=== PATIENT | female | born 1955 | race Two or more races ===

== ENCOUNTER 2018-11-17 09:19 | Day surgery (SDC) | payer BC ==
[~2018-11-17] VITALS: Ht 152.4 cm; Wt 47.6 kg
[~2018-11-17 09:19] MED LIST: ANDROGEL1.25 GM TD; B COMPLETE1 EACH PO; ESTRADIOL0.5 MG PO; LEVOTHYROXINE100 MCG PO; MELOXICAM7.5 MG PO; OXYCODON-ACETA1 EAC2 PO; PREGNENOLONE5 GM MISC; PROGESTERONE100 MG PO
--- NOTE | 2018-11-17 11:14 | NUR ---
11/17/18 1114 Ronan,Felecia 1103 PT ARRIVED TO PACU ON 3L VIA NC, RESP EVEN AND UNLABORED. 1111 MD AT BEDSIDE AND PT WOKE TO TACTILE STIMULI. PT REORIENTED TO PACU AND NC REMOVED. PT DENIES PAIN AND IS ENCOURAGED TO PASS GAS. PT ROOLED TO BACK AND HOB INCREASED. PT BACK TO SLEEP.
--- NOTE | 2018-11-17 18:54 | OR ---
[facility] [address] [place], [place] [address] Signed DATE OF OPERATION: 11/17/2018 SURGEON: Harriet Valentine MD PREOPERATIVE DIAGNOSIS: Colon screening. POSTOPERATIVE DIAGNOSIS: Normal colon to cecum. PROCEDURE: Total colonoscopy to cecum (difficult). ANESTHESIA: Intravenous sedation, fentanyl 150 mcg, Versed 8 mg. INDICATION: This 62-year-old woman is a patient Dr. Sethi and well known to me from the past, having undergone thyroidectomy for benign disease as well as colonoscopy in 2008, which was normal. She has no family history of colon cancer nor symptoms currently of bleeding, diarrhea, or constipation. She is admitted at this time to undergo colonoscopy for screening. She understands the risks of bleeding, infection, and perforation. FINDINGS: The prep was excellent. Complete colonoscopy was undertaken to cecum. Passage of the splenic flexure and hepatic flexure was challenging, but was accomplished ultimately with complete success, visualizing well the cecum and the remaining colon. There were no findings of polyps, diverticular formation, colitis, or cancer. DESCRIPTION OF PROCEDURE: The patient was brought to the endoscopy suite and placed in lateral decubitus position, given intravenous sedation to the point of slurred speech and nystagmus. Digital rectal examination was normal. Olympus video colonoscope was passed in the rectum and manipulated throughout the colon. Passage in the region of the splenic flexure was challenging and the scope was withdrawn and ultimately reintroduced, and with time and persistence and gentle care, ultimately advanced to the cecum itself. The ileocecal valve and appendiceal orifice were normal. Scope was withdrawn from that point and examination throughout showed no Electronically Signed By: HARRIET VALENTINE MD 11/17/18 1854 PATIENT NAME: FRANCISCO FRANKLIN OPERATIVE REPORT DATE OF : 55 REPORT #: [id number] PHYSICIAN: HARRIET VALENTINE MD PCP: JOSE SETHI MD REPORT IS CONFIDENTIAL AND NOT TO BE RELEASED WITHOUT AUTHORIZATION [facility] [address] [place], [place] [address] Signed sign of polyps, diverticular formation, colitis, or cancer. There is no actual stricture, but there must be significant angulation deformity to account for the difficulty of passage of the scope to begin with. The scope was withdrawn ultimately to the rectum. A retroflexed view was undertaken, which was normal as well. Scope was removed and the patient was taken to recovery room in good condition. CONCLUDING DIAGNOSIS: Normal colon. PLAN: Recommend repeat colonoscopy in 10 years sooner if clinically indicated. MD BARBY Holguin/ИРИНАL /[id number] cc: Jose Sethi MD Copies: JOSE SETHI MD ~ Electronically Signed By: HARRIET VALENTINE MD 11/17/18 1854 PATIENT NAME: FRANCISCO FRANKLIN OPERATIVE REPORT DATE OF : 55 REPORT #: [id number] PHYSICIAN: HARRIET VALENTINE MD PCP: JOSE SETHI MD REPORT IS CONFIDENTIAL AND NOT TO BE RELEASED WITHOUT AUTHORIZATION
== END 2018-11-17 11:50 | disposition home or self-care (01) ==
LOC: OPS 09:19 → DS 11:00 → OPS 11:00
PROVIDERS: Surgery
PROC: 0DJD8ZZ Inspection of Lower Intestinal Tract, Via Natural or Artificial Opening Endoscopic (ICD-10-PCS; principal; 2018-11-17 10:00)
DX: Z12.11 Encounter for screening for malignant neoplasm of colon (principal); R63.4 Abnormal weight loss; E89.0 Postprocedural hypothyroidism; Z98.890 Other specified postprocedural states; Z88.5 Allergy status to narcotic agent; Z86.39 Personal history of other endocrine, nutritional and metabolic disease
CPT/HCPCS: 99153; G0500; J2250; J3010; J7120

== ENCOUNTER 2023-09-13 06:40 | Day surgery (SDC) | payer BC ==
[2023-09-07 09:25] VITALS: BP 165/82
[~2023-09-13] VITALS: Ht 152.4 cm; Wt 45.5 kg
[~2023-09-13 06:40] MED LIST changes: +GALANTAMINE HBR24 MG PO; +LACTATED RINGER'S 1,000 ML IV SCH; +MODAFINIL200 MG PO; +VITAMIN B12500 MCG PO; +VITAMIN D3125 MC1 PO
[2023-09-13] MEDS ORDERED: KETOROLAC TROMETHAMINE 30 MG/ML VIAL ONE (06:55)
[2023-09-13] MEDS ORDERED: ondansetron HCL 4 MG/2 ML VIAL ONE (06:55)
[2023-09-13] MEDS ORDERED: propofoL 200 MG/20 ML VIAL ONE ×2 (06:55→12:52)
[2023-09-13] MEDS ORDERED: DEXAMETHASONE SOD PHOS 4 MG/ML VIAL ONE (06:55)
[2023-09-13] MEDS ORDERED: FAMOTIDINE 20 MG/ 2 ML VIAL ONE (06:55)
[2023-09-13] MEDS ORDERED: fentaNYL citrate 100 MCG/2 ML VIAL ONE (06:55)
[2023-09-13] MEDS ORDERED: LACTATED RINGER'S 1,000 ML IV ONE (06:55)
[2023-09-13] MEDS ORDERED: MIDAZOLAM HCL 2 MG/2 ML VIAL ONE (06:55)
[2023-09-13] MEDS ORDERED: METOCLOPRAMIDE HCL 10 MG/2 ML SDV ONE (06:55)
[2023-09-13] MEDS ORDERED: CEFAZOLIN SODIUM 2 GM/20 ML SYR IV SCH (07:00)
[2023-09-13] MEDS ORDERED: HEParin SOD (PORCINE) 5,000 UNIT/0.5 ML SYR SUB-Q SCH (07:00)
[2023-09-13] MEDS ORDERED: LIDOCAINE HCL 1% 5 ML SDV INJ ONE (07:00)
[2023-09-13] MEDS ORDERED: IBLOOD GLUCOSE TEST STRIP 1 EA TEST VI PRN ×2 (07:00→09:00)
[2023-09-13 07:22] VITALS: BP 152/72
[2023-09-13] MEDS ORDERED: ARMOUR THYROID30 MG PO (07:32)
--- NOTE | 2023-09-13 07:49 | NUR ---
VISITED DURING SPIRITUAL CARE ROUNDS. PT RECEIVING NURSING CARE. DID NOT INTERRUPT. PROVIDED PRAYER.
--- NOTE | 2023-09-13 08:45 | NUR ---
PT BACK FROM [facility]. PROVIDED WARM BLANKETS AND LAYING IN BED W/CALL LIGHT IN REACH. PT REPORTS NO FURTHER NEEDS AT THIS TIME. PT FAMILY AT BEDSIDE.
[2023-09-13] MEDS ORDERED: ondansetron HCL 4 MG/2 ML VIAL IV PRN (09:00)
[2023-09-13] MEDS ORDERED: fentaNYL citrate 50 MCG/ML SDV IV PRN (09:00)
[2023-09-13] MEDS ORDERED: droPERidol 5 MG/2 ML VIAL IV PRN (09:00)
[2023-09-13] MEDS ORDERED: MEPERIDINE HCL 25 MG/1 ML VIAL IV PRN (09:00)
[2023-09-13] MEDS ORDERED: PROCHLORPERAZINE EDISYLATE 10 MG/2 ML VIAL IV PRN (09:00)
[2023-09-13] MEDS ORDERED: METOCLOPRAMIDE HCL 10 MG/2 ML SDV IV PRN (09:00)
[2023-09-13] MEDS ORDERED: NALOXONE HCL 0.4 MG SYR IV PRN ×2 (09:00→15:00)
--- NOTE | 2023-09-13 10:30 | NUR ---
PT PROVIDED ORAL SWABS D/T MOUTH DRYNESS. PT STATES THESE HELP AND NO FURTHER QUESTIONS OR NEEDS. PT UPDATED ON PREVIOUS CASE PROGRESS. FAMILY REMAINS AT BEDSIDE.
--- NOTE | 2023-09-13 11:15 | NUR ---
PT UPDATED THAT PREVIOUS CASE HAS ENDED AND MELINDA LARIOS WILL BE IN SHORTLY TO TALK TO PT AND FAMILY. PT REPORTS NO FURTHER NEEDS OR QUESTIONS AT THIS TIME.
[2023-09-13] MEDS ORDERED: Methylene Blue 100 MG/10 ML SDV ONE (11:58)
[2023-09-13] MEDS ORDERED: OXYCODON-ACETA1 EAC2 PO (14:57)
[2023-09-13] MEDS ORDERED: ACETAMINOPHEN500 MG PO (14:57)
[2023-09-13] MEDS ORDERED: IBUPROFEN600 MG PO (14:57)
[2023-09-13] MEDS ORDERED: ACETAMINOPHEN 500 MG TAB PO PRN (15:00)
[2023-09-13] MEDS ORDERED: IBUPROFEN 600 MG TAB PO PRN (15:00)
[2023-09-13] MEDS ORDERED: LACTATED RINGER'S 1,000 ML IV SCH (15:00)
[2023-09-13] MEDS ORDERED: OXYCODONE/APAP 7.5/325 TAB PO PRN (15:00)
--- NOTE | 2023-09-13 15:05 | NUR ---
09/13/23 Kirit Bone 1432-PT ARRIVED TO PACU WITH OPA IN PLACE, ON 10L/MASK, AND UNRESPONSIVE TO NOXIOUS STIMULI. SURGICAL DRSGS OBSERVED AND PT NOTED WITH 2 DRSGS. DRSG ACCROSS L BREAST WITH SS AND ACTICOAT, CDI. DRSG ALSO UNDER L AXILLA WITH SS AND ACTICOAT, CDI. ABD SOFT, NT TO PALPATION. 1439-PT REMAINS UNRESPONSIVE TO NOXIOUS STIMULI, OPA REMAINS IN PLACE. OXYGEN TITRATED DOWN TO 6L/MASK. SATS STABLE AT 95% OR HIGHER. 1448-PT APPEARS TO BE AROUSING AND MOVING ABOUT BLE'S. PT REACHING FOR OXYGEN MASK, OPA REMOVED AT THIS TIME. 1451-PT MORE AWAKE AND PT TITRATED TO RA. SATS HOLDING STABLE AT 95% OR GREATER. 1455-PT ATTEMPTING TO SIT UP IN BED. ASSISTED WITH ELEVATING HOB TO APPROX 40 DEGREE ANGLE FOR COMFORT. 1458-DR. VALENTINE AT BEDSIDE DISCUSSING CASE WITH PT.
--- NOTE | 2023-09-13 15:25 | NUR ---
PT ARRIVES TO DS UNIT FROM PACU VIA STRETCHER. PT STATES SHE "WOULDN'T MIND A LITTLE SOMETHING FOR THE PAIN" AND THAT SHE "CAN CERTAINLY FEEL THAT IT'S THERE". PT ADVISED TO CONSUME SMALL AMOUNT OF ORAL FOOD BEFORE STOCK PITCHER, PT STATES VERBAL UNDERSTANDING AT THIS TIME AND REQUESTS JELLO. RESPIRATIONS EVEN AND UNLABORED, NO SIGNS OF DISTRESS. PT TOLERATING ICE WATER SIPS WITHOUT DIFFICULTY. WARM BLANKET PROVIDED. REPORT RECEIVED FROM [facility] W/FAMILY AT BEDSIDE & FOR VISUALIZATION OF WOUND DRESSING. CALL LIGHT WITHIN REACH, PT REPORTS NO FURTHER NEEDS OR QUESTIONS AT THIS TIME.
[2023-09-13 15:26] VITALS: BP 153/74
--- NOTE | 2023-09-13 15:45 | NUR ---
PT TOLERATED JELLO WITHOUT DIFFICULTY OR ONSET OF NAUSEA, PO TYLENOL GIVEN (SEE EMAR). PT STATES SHE NEEDS TO URINE VOID AT THIS TIME. PT REPORTS NO DIZZINESS OR NAUSEA SITTING/STANDING AT BEDSIDE. THIS RN STANDBY ASSIST TO RESTROOM FOR PT URINE VOID OF 275 ML. PT BACK IN BED WITH WARM BLANKETS AT THIS TIME, CALL LIGHT WITHIN REACH. PRESCRIPTION PROVIDED TO FOR HAND DELIVERY TO PHARMACY.
[2023-09-13 16:20] VITALS: BP 141/72
--- NOTE | 2023-09-13 16:35 | NUR ---
IN PT ROOM FOR DISCHARGE EDCUATION D/T RETURN FROM PHARMACY. PT AND PT STATE VERBAL UNDERSTANDING TO DISCHARGE EDUCATION AND NO FURTHER QUESTIONS AT THIS TIME. THIS RN STANDBY ASSIST TO URINE VOID AT THIS TIME. PT OFF OF UNIT TO PASSENGER SIDE OF 'S VEHICLE. PT AND PT REPORT NO FURTHER QUESTIONS OR NEEDS AT THIS TIME. ALL BELONGINGS ARE IN PT POSSESSION.
--- NOTE | 2023-09-14 13:31 | OR ---
[facility] [address] [place], [place] [address] Signed DATE OF OPERATION: 09/13/2023 SURGEON: Harriet Valentine MD PREOPERATIVE DIAGNOSES: 1. 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 2. Small breast. POSTOPERATIVE DIAGNOSES: 1. 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 2. Small breast. PROCEDURES: 1. Injection of methylene blue for sentinel lymph node identification, left breast. 2. Left deep axillary sentinel lymph node biopsies x3. 3. Left partial mastectomy with oncoplastic closure (tissue transfer reconstruction). ANESTHESIA: General endotracheal; Harriet Paez CRNA. INDICATION: This 67-year-old woman is a patient of Jose Sethi MD. She was last seen by me in 2019 for colonoscopy. She had hyperthyroidism at that time, which has been managed. More recently, she was found to have abnormality on the left mammogram and underwent stereotactic breast biopsy on August 18, 2023 at [facility], confirming ductal carcinoma in situ, considered high grade. The lesion was located in the medial aspect at the 9 o'clock position a few cm from the areolar margin. Central expansive comedo necrosis was noted, it was considered grade 3 (high). Clinical examination shows the lesion to be relatively well defined. There is no clinical or radiographic evidence of invasive cancer though that is considered a possibility as well. Mindful of her small breast size, options of management have been reviewed including breast conservation therapy to include partial mastectomy, probable oncoplastic closure and subsequent radiation therapy versus total mastectomy. She prefers breast conservation if possible. [place] lymph node biopsies will be undertaken as well considering high-grade nature of the lesion. The risk of bleeding, infection, cosmetic deformity, need for additional surgery, particularly if margin is found to be positive were all reviewed with her in detail. She understands and wished to proceed. FINDINGS: [place] lymph nodes were identified rather easily showing good uptake of radionuclide Electronically Signed By: HARRIET VALENTINE MD 09/14/23 1331 PATIENT NAME: FRANCISCO FRANKLIN OPERATIVE REPORT DATE OF : 55 REPORT #: [id number] PHYSICIAN: HARRIET VALENTINE MD PCP: JOSE SETHI MD REPORT IS CONFIDENTIAL AND NOT TO BE RELEASED WITHOUT AUTHORIZATION [facility] [address] [place], [place] [address] Signed and dye. Three such nodes were excised, none appeared clinically worrisome for metastatic disease. The breast tissue itself was quite dense and in the medial aspect of the left breast. Resection with a clinically negative margin was undertaken down to the pectoralis fascia and given the size resected, an oncoplastic closure was required. This included mobilization of superior and inferior breast pedicle and central breast pedicle to fill the defect. Additional excision of skin for optimal cosmetic benefit was undertaken as well. The specimen was oriented with a short stitch superior and long stitch lateral. DESCRIPTION OF PROCEDURE: The patient was brought to the operating room, given a general anesthetic. Preoperative antibiotic Ancef was given. Sequential compression device stockings were used and heparin subcutaneously administered. She had undergone radionuclide injection for sentinel lymph node identification. She did not require localization as the area in question in the medial aspect of breast was easily identified. The left breast and axillary area prepared with a chlorhexidine solution and draped sterilely. Interrogation of the left axilla with the C-Trak gamma probe device identified an area of maximal uptake and a small transverse incision was made there. Dissection was carried through the subcutaneous tissue with electrocautery and blunt dissection. Not previously noted was injection of 1 mL of methylene blue dye in the left periareolar area prior to preparation of the breast, but after induction of anesthesia. Noted in the left axillary site was a blue lymphatic channel which was followed to an obvious sentinel lymph node which was avid with blue dye as well as radionuclide. This was excised and passed as the sentinel lymph node #1. Two additional such lymph nodes were excised with similar technique. Clips were applied to the lymphatic pedicles. The wound was then packed with plain gauze. Attention was turned towards the lesion in the left breast. It was quite easily distinguished in the left medial breast. It was approximately 1 cm away from the areolar margin itself. It extended approximately 2 to 3 cm medially and 1 cm cephalad and inferior along that mid plane access. The areolar margin was marked and an area of possible skin pedicle for excision also identified. A curvilinear incision was made in the areolar margin with a 15 blade. Dissection was carried directly down to the pectoralis fascia with electrocautery providing a medial margin. Excision was then taken including a pedicle of skin in the medial aspect given the particulars of the palpable mass and again extended widely superiorly and inferiorly excising the tissue directly off the pectoralis fascia. A generous specimen was excised so as to provide a negative margin given the lesion itself, which was about 3 cm in size. Notably her breast is relatively small. The specimen was oriented with a short stitch superior and a long stitch medial. By this, the medial margin is in the periareolar margin in fact. This was passed for permanent pathology. Irrigation was undertaken with sterile water. Electronically Signed By: HARRIET VALENTINE MD 09/14/23 1331 PATIENT NAME: TRU FRANKLINSHOSHANA SANCHEZ OPERATIVE REPORT DATE OF : 55 REPORT #: [id number] PHYSICIAN: HARRIET VALENTINE MD PCP: JOSE SETHI MD REPORT IS CONFIDENTIAL AND NOT TO BE RELEASED WITHOUT AUTHORIZATION [facility] [address] [place], [place] [address] Signed Given the resultant defect, an oculoplastic closure was deemed appropriate. The superior breast pedicle was mobilized from pectoralis with electrocautery and rotated inferiorly. The inferior pedicle similarly mobilized and the central and lateral pedicle already mobile enough. Superior and inferior breast pedicles were reapproximated with interrupted 2-0 Vicryl and the central pedicle withdrawn somewhat medially to secure them as well. The paddle of skin that had been excised with the original specimen was appropriate for areolar reapproximation. Some medial skin was redundant in a dog-ear type configuration, was excised and passed as additional skin. Given the reconstructed breast, the skin was closed with a running 3-0 nylon suture. Not mentioned previously was marking of the excision cavity with clips for postoperative radiation orientation. Examination of the left axilla showed no sign of ongoing bleeding. Irrigation was undertaken with sterile water and a few additional areas were secured with hemostasis using electrocautery. Carmel was applied to the depths of the wound. Once hemostasis was assured, the wound was then closed in layers of interrupted 2-0 Vicryl and running subcuticular 3-0 Vicryl for the skin. Steri-Strips were applied to the axillary wound as was an Acticoat dressing. An Acticoat dressing was additionally applied to the breast site. She was ultimately extubated and transferred to the recovery room in good condition having suffered no complications. Sponge, needle, and instrument counts were reported as correct x3. Harriet Valentine MD JM/MODL /[id number] cc: Jose Sethi MD Copies: JOSE SETHI MD ~ Electronically Signed By: HARRIET VALENTINE MD 09/14/23 1331 PATIENT NAME: FRANCISCO FRANKLIN OPERATIVE REPORT DATE OF : 55 REPORT #: [id number] PHYSICIAN: HARRIET VALENTINE MD PCP: JOSE SETHI MD REPORT IS CONFIDENTIAL AND NOT TO BE RELEASED WITHOUT AUTHORIZATION
--- NOTE | 2023-09-16 09:55 | PATH ---
[facility] [address] [facility] [place], [place] [address] Signed SPECIMEN(S): A LEFT AXILLA SENTINAL LYMPH NODE SPECIMEN(S): B SENTINAL LYMPH NODE #2 SPECIMEN(S): C SENTINEL LYMPH NODE #3 SPECIMEN(S): D LEFT BREAST MASS SPECIMEN(S): E ADDITIONAL SKIN SPECIMEN SOURCE: A. LEFT AXILLA SENTINAL LYMPH NODE B. SENTINAL LYMPH NODE #2 C. SENTINEL LYMPH NODE #3 D. LEFT BREAST MASS E. ADDITIONAL SKIN CLINICAL HISTORY: Ductal carcinoma in situ left breast. FINAL PATHOLOGIC DIAGNOSIS: A. " and designated on the requisition "left axilla sentinel lymph node #1: - 1 lymph node, negative for malignancy by morphology and immunohistochemistry [id number] B. " and designated on the requisition "sentinel lymph node #2: - 2 lymph nodes, negative for malignancy by morphology and immunohistochemistry C. " and designated on the requisition "sentinel lymph node #3: - 1 lymph node, negative for malignancyMorphology and immunohistochemistry D. Left breast mass lumpectomy: - Invasive ductal carcinoma, see synoptic report E. " and designated on the requisition "additional skin: - Portion of skin with no pathologic diagnosis. INVASIVE CARCINOMA OF THE BREAST: Resection Applies To: D SPECIMEN Procedure: Excision (less than total mastectomy) Specimen Laterality: Left TUMOR Tumor Site: Lower inner quadrant Histologic Type: Invasive carcinoma of no special type (ductal) Glandular (Acinar) / Tubular Differentiation: Score 3 Nuclear Pleomorphism: Score 3 Mitotic Rate: Score 3 PATIENT NAME: FRANCISCO ALEJANDRO PATHOLOGY DATE OF : 55 REPORT #: [id number] PHYSICIAN: TAYA MONTE PCP: JOSE CROW MD REPORT IS CONFIDENTIAL AND NOT TO BE RELEASED WITHOUT AUTHORIZATION [facility] [address] [place], [place] [address] Signed Overall Grade: Grade 3 (scores of 8 or 9) Tumor Size: Greatest dimension of largest invasive focus (Millimeters) - 24 x 23 x 17 mm Tumor Focality: Single focus of invasive carcinoma Ductal Carcinoma In Situ (DCIS): Present Lymphatic and / or Vascular Invasion: Not identified Microcalcifications: Present in DCIS Treatment Effect in the Breast: No known presurgical therapy MARGINS Margin Status for Invasive Carcinoma: Invasive carcinoma present at margin Margin(s) Involved by Invasive Carcinoma: Posterior - 10 mm Margin Status for DCIS: All margins negative for DCIS Distance from DCIS to Closest Margin: 1 mm Closest Margin(s) to DCIS: Posterior REGIONAL LYMPH NODES Regional Lymph Node Status: All regional lymph nodes negative for tumor Total Number of Lymph Nodes Examined (sentinel and non-sentinel): 4 Number of [place] Nodes Examined: 4 pTNM CLASSIFICATION (AJCC 8th Edition) Reporting of pT, pN, and (when applicable) pM categories is based on information available to the pathologist at the time the report is issued. As per the AJCC (Chapter 1, 8th Ed.) it is the managing physician's responsibility to establish the final pathologic stage based upon all pertinent information, including but potentially not limited to this pathology report. pT Category: pT2 pN Category: pN0 N Suffix: (sn) Comment(s): Morphologic features of previous biopsy site COMMENT: As part of quality control projectionist program, this case is reviewed by another staff member. NA MICROSCOPIC EXAMINATION: Histologic sections of all submitted blocks are examined by light microscopy. These findings, together with the gross examination, support the pathologic diagnosis. GROSS DESCRIPTION: PATIENT NAME: FRANCISCO ALEJANDRO PATHOLOGY DATE OF : 55 REPORT #: [id number] PHYSICIAN: TAYA MONTE PCP: JOSE CROW MD REPORT IS CONFIDENTIAL AND NOT TO BE RELEASED WITHOUT AUTHORIZATION [facility] [address] [place], [place] [address] Signed A. The specimen, labeled and designated "Juan Pablo Alejandro " and designated on the requisition "left axilla sentinel lymph node #1," is received in formalin and consists of 1.7 x 1.5 x 0.7 cm portion of yellow-garcia adipose tissue that upon dissection reveals one lymph node candidate with a blue dye discoloration that is 1.2 cm in greatest dimension. The lymph node is sectioned and entirely submitted in cassette A1. Only adipose tissue remains within the container. B. The specimen, labeled and designated "Juan Pablo Alejandro " and designated on the requisition "sentinel lymph node #2," is received in formalin and consists of 2.6 x 1.4 x 0.9 cm portion of yellow-garcia adipose tissue that upon dissection reveals two possible lymph nodes that measure 0.7 cm and 0.9 cm in greatest dimension. The lymph nodes are entirely submitted for histologic examination. Only adipose tissue remains within the container. Cassette Summary: (B1) one possible lymph node, trisected (B2) one possible lymph node, sectioned C. The specimen, labeled and designated "Juan Pablo Alejandro, " and designated on the requisition "sentinel lymph node #3," is received in formalin and consists of 2.5 x 2.0 x 0.6 cm portion of yellow-garcia adipose tissue that upon dissection reveals one pink possible lymph node that is 0.7 cm in greatest dimension. The lymph node is trisected and entirely submitted in cassette C1. Only adipose tissue remains within the container. D. The specimen, labeled and designated "Juan Pablo Alejandro, left breast mass lumpectomy," is received in formalin and consists of 50 gram oriented portion of yellow-garcia fibroadipose tissue that is 6.5 x 4.7 x 3.4 cm with a garcia portion of skin present on the anterior aspect measuring 3.2 x 1.6 cm. The skin surface is garcia wrinkled. A short suture is present and identifies the superior margin; a long suture identifies the lateral margin. The specimen is inked as follows: superior - blue; inferior - green; medial - red; lateral - orange; anterior - yellow; and posterior - black. The specimen is serially sectioned from superior to inferior into 15 slices revealing a 2.4 x 2.3 x 1.7 cm pink-garcia firm ill-defined mass present in slices 5-12. The mass is 2.3 cm from the anterior skin, 2.0 cm from the anterior soft tissue margin, 0.1 cm from the posterior soft tissue margin, 1.9 cm from the superior soft tissue margin, 2.7 cm from the inferior soft tissue margin, 0.1 cm from the medial soft tissue margin, and 0.8 cm from the lateral soft tissue margin. The slices PATIENT NAME: FRANCISCO ALEJANDRO LAURA PATHOLOGY DATE OF : 55 REPORT #: [id number] PHYSICIAN: TAYA MONTE PCP: JOSE CROW MD REPORT IS CONFIDENTIAL AND NOT TO BE RELEASED WITHOUT AUTHORIZATION [facility] [address] [place], [place] [address] Signed containing the mass are entirely submitted for histologic examination. A clip is identified in slice 10. Approximately 90% of the remaining specimen is a yellow-garcia greasy adipose tissue and 10% is a white-garcia rubbery fibrous tissue. Top Closer sections are submitted in 30 cassettes. Cassette Summary: (D1-D3) slice one, superior soft tissue resection margin, perpendicular (D4) fibroadipose tissue superior to mass, slice four (D5-D7) slice five (D8-D10) slice six (D11-D13) slice seven (D14-D16) slice eight (D17-D19) slice nine (D20-D22) slice 10 (D23-D25) slice 11 (D26-D28) slice 12 (D29) fibroadipose tissue inferior to mass, slice 13 (D30) slice 15, inferior soft tissue resection margin, perpendicular Cold ischemia time: Insufficient data to calculate. Approximate Formalin time: 39 hours and 30 minutes. E. The specimen, labeled and designated "Javon, E, " and designated on the requisition "additional skin," is received in formalin and consists of 5.7 x 2.8 x 1.2 cm irregular shaped portion of skin and underlying fibroadipose tissue. The skin surface is garcia and wrinkled. The specimen is inked and serially sectioned revealing approximately 10% is a pink delicate fibrous tissue. No discrete mass lesions are gross identified. Top Closer sections are submitted in (E1-E2). FB (under the direct supervision of a pathologist) The Gross Description was prepared using a voice recognition system. The report was reviewed for accuracy; however, sound-alike word errors, addition and/or deletions may occur. If there is any question about this report, please contact Client Services. ADDITIONAL NOTES: Immunohistochemical and/or in situ hybridization studies if performed in this case included appropriate positive controls that reacted as expected. This test was developed and its performance characteristics determined by [facility]. It has not been cleared or approved by the U.S. Food and Drug Administration. The FDA has determined that PATIENT NAME: FRANCISCO ALEJANDRO PATHOLOGY DATE OF : 55 REPORT #: [id number] PHYSICIAN: TAYA MONTE PCP: JOSE CROW MD REPORT IS CONFIDENTIAL AND NOT TO BE RELEASED WITHOUT AUTHORIZATION [facility] [address] [place], [place] [address] Signed such clearance or approval is not necessary. This test is used for clinical purposes. It should not be regarded as investigational or for research. [facility] is certified under the Clinical Laboratory Improvement Amendments of 1988 (CLIA) as qualified to perform high complexity clinical laboratory testing. PERFORMING LABORATORY: Technical component was performed by [facility], [address] [place] [address] (CLIA# [id number]). Professional interpretation was performed by [facility] - [facility], [address] [place] [address] (CLIA#: [id number]). Diagnostician: Eric Tyler MD Pathologist Electronically Signed 09/15/2023 Copies: ~ PATIENT NAME: FRANCISCO ALEJANDRO PATHOLOGY DATE OF : 55 REPORT #: [id number] PHYSICIAN: TAYA PATHOLOGY PCP: JOSE CROW MD REPORT IS CONFIDENTIAL AND NOT TO BE RELEASED WITHOUT AUTHORIZATION
== END 2023-09-13 16:40 | disposition home or self-care (01) ==
LOC: DS 06:40 → OPS 06:40 → NUC 08:00 → EDSTATUS 08:00 → OPS 16:40
PROVIDERS: ATTEND Surgery
PROC: 0HBU0ZZ Excision of Left Breast, Open Approach (ICD-10-PCS; principal; 2023-09-13 11:20)
PROC: 07B60ZZ Excision of Left Axillary Lymphatic, Open Approach (ICD-10-PCS; 2023-09-13 11:20)
DX: C50.312 Malignant neoplasm of lower-inner quadrant of left female breast (principal); Z88.5 Allergy status to narcotic agent
CPT/HCPCS: 00400; 78195; A9270; A9541; J0690; J1100; J1644; J1885; J2250; J2405; J2704; J2765; J3010; J3490; J7121

== ENCOUNTER 2023-10-18 07:55 | Day surgery (SDC) | payer BC ==
[~2023-10-18] VITALS: Ht 152.4 cm; Wt 43.2 kg
--- NOTE | ~2023-10-18 | OR ---
[facility] [address] [place], [place] [address] Draft DATE OF OPERATION: 10/18/2023 SURGEON: Harriet Valentine MD PREOPERATIVE DIAGNOSES: 1. Recent left partial mastectomy with oncoplastic closure and sentinel lymph node biopsies for infiltrating ductal breast carcinoma. 2. Deep positive margin of biopsy specimen. POSTOPERATIVE DIAGNOSES: 1. Recent left partial mastectomy with oncoplastic closure and sentinel lymph node biopsies for infiltrating ductal breast carcinoma. 2. Deep positive margin of biopsy specimen. PROCEDURE: Partial mastectomy (re-excision) deep margin of previous partial mastectomy site. ANESTHESIA: General LMA, , HARDWOOD SAWYER and local 10 mL of 0.25% Marcaine with epinephrine. INDICATION: This 67-year-old woman is a patient of Dr. Sethi. 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 She underwent sentinel lymph node biopsy concurrent to wide resection of the lesion. A clinically negative margin was maintained and an oncoplastic closure was required based on the extent of excision and tissue defect in the central breast. Her recovery has been unremarkable and breast cosmesis remains quite excellent with reconstructed left breast. Final pathology showed not only high-grade ductal carcinoma in situ, but more importantly an invasive infiltrating ductal carcinoma 2.4 cm in size. The peripheral and superficial margins were negative, but the deep margin was considered to be positive. This was identified as "positive posterior margin." The area involved was about 10 mm in size. The sentinel lymph nodes excised were all negative for metastatic disease. On the basis of positive margins and after review at Tumor Board, reexcision of the excise site is recommended. The patient and her understand the risk of bleeding, infection, appearance, inability to provide a negative margin despite every effort to do so, and other unforeseen complications and they wish to proceed. FINDINGS: The approach to the site was through the inferior mammary breast fold. Excision was PATIENT NAME: FRANCISCO FRANKLIN OPERATIVE REPORT DATE OF : 55 REPORT #: [id number] PHYSICIAN: HARRIET VALENTINE MD PCP: JOSE SETHI MD REPORT IS CONFIDENTIAL AND NOT TO BE RELEASED WITHOUT AUTHORIZATION [facility] [address] [place] [id number] Draft undertaken which included portions of the pectoralis muscle deeply and parenchyma superficial to that, which was approximately 2 cm in size. Complete excision of the previous excision site was accomplished. The specimen was oriented with short stitch superior, long stitch lateral and a double stitch in the deep portion. There was no untoward bleeding. Care was taken to avoid perforating vessels that supplied the remaining parenchyma of the breast. The site was marked with double clip application (small clips to the area of re-excision to guide radiation therapy in the near future). A pleated closure of the remaining breast parenchyma to the pectoralis allowed for closure of the space. A drain was not used. DESCRIPTION OF PROCEDURE: The patient was brought to the operating room and given a general LMA type anesthetic. Preoperative antibiotic Ancef was given. Sequential compression device stockings were used and heparin subcutaneously administered. The left breast was prepared with a Betadine based solution and draped sterilely. Sutures that remained from the previous excision were left in situ at that point. The inframammary crease was marked and incision made in the inframammary crease and dissected through the deep dermal and parenchymal layer with electrocautery. The parenchyma of the breast was elevated and the pectoralis identified and in the region of previous excision and the deep fascia including portions of pectoralis muscle undertaken. Care was taken to avoid perforating vessels supplying breast parenchyma in the region as well. Once this was freed off completely over the area of previous excision, a separate incision was made superficial to the previous excised tissue maintaining a thickness of approximately 1-1/2 cm at most. This was undertaken with electrocautery quite easily identifying the previous excision site. Once excised and explanted, the parenchyma was marked with a short stitch superior, long stitch lateral and a double stitch deep. The parenchyma was found to be hemostatic. Some Carmel was applied to the wound area and the remaining breast parenchyma secured to the pectoralis with interrupted 2-0 Vicryl sutures. Double clips (small in size) were applied to the excision site itself for future reference for radiation therapy. Steri-Strips were applied to this wound. The remaining suture from the left breast medially and around the areola were removed and Steri-Strips applied to this area as well and no additional Mepilex required in that area. The patient was ultimately extubated and transferred to the recovery room in good condition having suffered no complications. Sponge, needle, and instrument counts reported as correct x3. Harriet Valentine MD PATIENT NAME: FRANCISCO FRANKLIN OPERATIVE REPORT DATE OF : 55 REPORT #: [id number] PHYSICIAN: HARRIET VALENTINE MD PCP: JOSE SETHI MD REPORT IS CONFIDENTIAL AND NOT TO BE RELEASED WITHOUT AUTHORIZATION [facility] [address] [place], [place] [address] Draft /[facility] /[id number] cc: [facility], Joann Marcus MD Russell Barr Harrison, MD Copies: JOANN MONCADA MD, RUSSELL BARR MD ~ PATIENT NAME: NOEMIFRANCISCOSHOSHANA SANCHEZ OPERATIVE REPORT DATE OF : 55 REPORT #: [id number] PHYSICIAN: HARRIET VALENTINE MD PCP: JOSE SETHI MD REPORT IS CONFIDENTIAL AND NOT TO BE RELEASED WITHOUT AUTHORIZATION
[~2023-10-18 07:55] MED LIST changes: +ACETAMINOPHEN500 MG PO; +ARMOUR THYROID30 MG PO; +CEFAZOLIN SODIUM 2 GM/20 ML SYR IV SCH; +HEParin SOD (PORCINE) 5,000 UNIT/0.5 ML SYR SUB-Q SCH; +IBLOOD GLUCOSE TEST STRIP 1 EA TEST VI PRN; +IBUPROFEN600 MG PO; +LIDOCAINE HCL 1% 5 ML SDV INJ ONE
[2023-10-18 08:22] VITALS: BP 141/73
[2023-10-18] MEDS ORDERED: LIDOCAINE HCL 2% 5 ML SDV ONE (08:43)
[2023-10-18] MEDS ORDERED: ondansetron HCL 4 MG/2 ML VIAL ONE (08:43)
[2023-10-18] MEDS ORDERED: propofoL 200 MG/20 ML VIAL ONE (08:43)
[2023-10-18] MEDS ORDERED: DEXAMETHASONE SOD PHOS 4 MG/ML VIAL ONE (08:43)
[2023-10-18] MEDS ORDERED: MIDAZOLAM HCL 2 MG/2 ML VIAL ONE (08:43)
[2023-10-18] MEDS ORDERED: fentaNYL citrate 100 MCG/2 ML VIAL ONE (08:43)
[2023-10-18] MEDS ORDERED: ePHEDrine sulfate 50 MG/ML AMP ONE (09:34)
--- NOTE | 2023-10-18 09:54 | NUR ---
10/18/23 0954 Kelly Rodriguez 0945- PT ARRIVES TO PACU NONAROUSABLE WITH AN OPA IN PLACE. RESP EVEN AND UNLABORED. OXYGEN SAT MID 90'S ON RA. PT HAS NEW STERI STRIPS PLACED TO OLD INCISION BY DR. VALENTINE.
[2023-10-18] MEDS ORDERED: NALOXONE HCL 0.4 MG SYR IV PRN ×2 (10:00→10:15)
[2023-10-18] MEDS ORDERED: MEPERIDINE HCL 25 MG/1 ML VIAL IV PRN (10:00)
[2023-10-18] MEDS ORDERED: HYDROmorphone HCL 1 MG/ML SYR IV PRN (10:00)
[2023-10-18] MEDS ORDERED: ondansetron HCL 4 MG/2 ML VIAL IV PRN (10:00)
[2023-10-18] MEDS ORDERED: fentaNYL citrate 50 MCG/ML SDV IV PRN (10:00)
[2023-10-18] MEDS ORDERED: OXYCODON-ACETA1 EAC2 PO (10:09)
[2023-10-18] MEDS ORDERED: IBUPROFEN600 MG PO (10:09)
[2023-10-18] MEDS ORDERED: ACETAMINOPHEN500 MG PO (10:09)
[2023-10-18] MEDS ORDERED: OXYCODONE/APAP 7.5/325 TAB PO PRN (10:15)
[2023-10-18] MEDS ORDERED: IBUPROFEN 600 MG TAB PO PRN (10:15)
[2023-10-18] MEDS ORDERED: ACETAMINOPHEN 500 MG TAB PO PRN (10:15)
[2023-10-18] MEDS ORDERED: LACTATED RINGER'S 1,000 ML IV SCH (10:15)
[2023-10-18 10:40] VITALS: BP 123/69
--- NOTE | 2023-10-18 10:52 | NUR ---
1040: PATIENT BACK IN DAY SURGERY ROOM FROM PACU. PATIENT UNABLE TO RATE PAIN, BUT STATES FEELING SOME PAIN IN LEFT BREAST. PATIENT DENIES NEED FOR PAIN MEDICATION AT THIS TIME. VS CHECKED. IV SITE WNL. LEFT BREAST DRESSING CLEAN, DRY AND INTACT. PATIENT GIVEN SIP OF ICE WATER. CALL LIGHT WITHIN REACH. AT BEDSIDE.
--- NOTE | 2023-10-18 11:25 | NUR ---
1110: PATIENT ASSISTED OOB AND TO BATHROOM. GAIT SLIGHTLY UNSTEADY. VOID WITHOUT DIFFICULTY. ASSISTED BACK TO ROOM AND BED. 1120: PATIENT C/O PAIN 4-08/07. REQUESTS TYLENOL FOR PAIN. MEDICATED FOR PAIN WITH ACETAMINOPHEN. GIVEN APPLESAUCE TO EAT. CALL LIGHT WITHIN REACH. AT BEDSIDE.
[2023-10-18 11:45] VITALS: BP 128/58
--- NOTE | 2023-10-18 13:54 | NUR ---
1145: VS CHECKED. LEFT BREAST DRESSING WITH SMALL AMOUNT OF RED DRAINAGE. TOLERATING WATER AND APPLESAUCE. 1200: DISCHARGE INSTRUCTIONS GIVEN TO PATIENT AND . PATIENT ASSISTED OOB AND TO BATHROOM. GAIT STEADY. STAND BY ASSIST BACK TO ROOM. CALL LIGHT WITHIN REACH. AT BEDSIDE. 1230: PATIENT DRESSED WITH HELP FROM . IV DC'D WNL. TIP INTACT. DRESSING APPLIED. PATIENT DISCHARGED TO HOME VIA WHEELCHAIR WITH .
--- NOTE | 2023-10-20 11:02 | PATH ---
[facility] [address] [place], [place] [address] Signed SPECIMEN(S): A LEFT CENTRAL BREAST SPECIMEN SOURCE: A. LEFT CENTRAL BREAST CLINICAL HISTORY: Infiltrating ductal carcinoma; re-excision deep margin. FINAL PATHOLOGIC DIAGNOSIS: Breast, left central, excision: - No residual invasive or in situ carcinoma - Atypical lobular hyperplasia - Usual ductal hyperplasia - Microcalcifications identified in association with nonneoplastic tissue - Prior procedural site changes BRP MICROSCOPIC EXAMINATION: Histologic sections of all submitted blocks are examined by light microscopy. These findings, together with the gross examination, support the pathologic diagnosis. GROSS DESCRIPTION: The specimen, labeled and designated "Juan Pablo Alejandro " and designated on the requisition "left central breast reexcision," is received in formalin and consists of 11 gram, oriented portion of yellow-gracia fibroadipose tissue that is 7.3 x 2.6 x 1.4 cm. A short suture is present and identifies the superior margin, a long suture identifies the lateral margin, and a double suture identifies the deep/posterior margin. The specimen is inked as follows: Superior - blue; inferior - green; medial - red; lateral - orange; anterior - yellow; and posterior - black. The specimen is serially sectioned from lateral to medial into 22 slices revealing approximately 70% of the specimens a pink-white dense rubbery fibrous tissue and 30% is a yellow-garcia greasy adipose tissue. No discrete mass lesions are grossly identified. The specimen is entirely submitted consecutively in 19 cassettes. Cassette Summary: (A1) lateral soft tissue resection margin, slice 1 and 2 (A2) slice 3 and 4 PATIENT NAME: FRANCISCO ALEJANDRO PATHOLOGY DATE OF : 55 REPORT #: [id number] PHYSICIAN: TAYA MONTE PCP: JOSE CROW MD REPORT IS CONFIDENTIAL AND NOT TO BE RELEASED WITHOUT AUTHORIZATION [facility] [address] [place], [place] [address] Signed (A3) slice 5 (A4) slice 6 (A5) slice 7 (A6) slice 8 (A7) slice 9 (A8) slice 10 (A9) slice 11 (A10) slice 12 (A11) slice 13 (A12) slice 14 (A13) slice 15 (A14) slice 16 (A15) slice 17 (A16) slice 18 (A17) slice 19 (A18) slice 20 (A19) slice 21 and 22, medial soft tissue resection margin Cold ischemia time: Insufficient data to calculate. Approximate Formalin time: 6-24 hours FB (under the direct supervision of a pathologist) The Gross Description was prepared using a voice recognition system. The report was reviewed for accuracy; however, sound-alike word errors, addition and/or deletions may occur. If there is any question about this report, please contact Client Services. ADDITIONAL NOTES: Immunohistochemical and/or in situ hybridization studies if performed in this case included appropriate positive controls that reacted as expected. This test was developed and its performance characteristics determined by [employer]. It has not been cleared or approved by the U.S. Food and Drug Administration. The FDA has determined that such clearance or approval is not necessary. This test is used for clinical purposes. It should not be regarded as investigational or for research. [facility] [employer] is certified under the Clinical Laboratory Improvement Amendments of 1988 (CLIA) as qualified to perform high complexity clinical laboratory testing. PERFORMING LABORATORY: Technical component was performed by [facility] [facility], [facility] [place] [address] (CLIA# [id number]). Professional interpretation was performed by [facility] - [address] [place], [address] PATIENT NAME: TRU ALEJANDROSHOSHANA SANCHEZ PATHOLOGY DATE OF : 55 REPORT #: [id number] PHYSICIAN: TAYA MONTE PCP: JOSE CROW MD REPORT IS CONFIDENTIAL AND NOT TO BE RELEASED WITHOUT AUTHORIZATION [address], [place] [address] Signed [facility] [place] [address] (CLIA# [id number]). Diagnostician: Kyle Clark MD Pathologist Electronically Signed 10/20/2023 Copies: ~ PATIENT NAME: NOEMIFRANCISCO SANCHEZ PATHOLOGY DATE OF : 55 REPORT #: [id number] PHYSICIAN: TAYA PATHOLOGY PCP: JOSE CROW MD REPORT IS CONFIDENTIAL AND NOT TO BE RELEASED WITHOUT AUTHORIZATION
== END 2023-10-18 12:30 | disposition home or self-care (01) ==
LOC: DS 07:55
PROVIDERS: ATTEND Surgery
PROC: 0HBU0ZZ Excision of Left Breast, Open Approach (ICD-10-PCS; principal; 2023-10-18 09:30)
DX: C50.112 Malignant neoplasm of central portion of left female breast (principal); E03.9 Hypothyroidism, unspecified; F03.90 Unspecified dementia, unspecified severity, without behavioral disturbance, psychotic disturbance, mood disturbance, and anxiety; Z79.890 Hormone replacement therapy; Z79.899 Other long term (current) drug therapy; Z88.5 Allergy status to narcotic agent
CPT/HCPCS: 00400; A9270; J0690; J1100; J1644; J2001; J2250; J2405; J2704; J3010; J7121